=== PATIENT | female | born 1975 | race Caucasian/White ===

== ENCOUNTER → 2018-03-15 14:20 | Outpatient (CLI) | payer OTHER, SELFPAY ==
--- NOTE | 2018-03-15 | DI.US.S_ITS ---
ULTRASOUND OF RIGHT BREAST: 03/15/2018 CLINICAL: Patient returns for additional imaging over a suspected mass in the right breast. Comparison is made to exams dated: 03/15/2018 mammogram - [facility], 03/03/2018 mammogram, and 02/08/2017 mammogram - [facility]. Color flow ultrasound of the right breast was performed. Scruggs scale images of the real-time examination were reviewed. There is a 1.4 cm complicated cyst in the right breast at 9 o'clock posterior depth. This correlates with mammography findings. There also is a benign 1.3 cm simple cyst in the right breast at 9 o'clock middle depth. IMPRESSION: SUSPICIOUS OF MALIGNANCY - FOLLOW-UP RECOMMENDED The 1.4 cm complicated cyst in the right breast at 9 o'clock posterior depth is suspicious. An ultrasound guided aspiration is recommended. If finding does not aspirate to completion biopsy will be undertaken at that time. The 1.3 cm simple cyst in the right breast at 9 o'clock middle depth is benign. Findings and recommendations discussed with the patient by Dr. Gagnon of the department of radiology at the time of evaluation. This exam was interpreted at Station ID: [id number]. Electronically Signed By: Stepan Kendrick M.D. cj/:03/15/2018 22:43:54 letter sent: Biopsy Required Ultrasound BI-RADS: 4 Suspicious abnormality
--- NOTE | 2018-03-15 | DI.MG.S_ITS ---
UNILATERAL RIGHT DIGITAL DIAGNOSTIC MAMMOGRAM 3D/2D WITH ADDITIONAL VIEWS: 03/15/2018 CLINICAL: Additional evaluation requested from prior study. Comparison is made to exams dated: 03/03/2018 mammogram, 02/08/2017 mammogram, and 02/17/2016 mammogram - [facility]. The tissue of the right breast is heterogeneously dense. This may lower the sensitivity of mammography. There is a 1.8 cm oval low density mass with a circumscribed margin in the right breast at 11 o'clock posterior depth. No other significant masses or calcifications are seen in the breast. IMPRESSION: INCOMPLETE: NEEDS ADDITIONAL IMAGING EVALUATION The 1.8 cm oval low density mass in the right breast is indeterminate. An ultrasound is recommended. This exam was interpreted at Station ID: [id number]. NOTE: For mammograms, a report in lay terms will be sent to the patient. Approximately 15% of breast malignancies will not be visualized mammographically. In the management of a palpable breast mass, a negative mammogram must not discourage biopsy of a clinically suspicious lesion. Electronically Signed By: Stepan narvaez/afshin:03/15/2018 22:40:50 ACR BI-RADS Category 0: Incomplete 3340F
== END ==
PROVIDERS: PCP Physician Assistant; Visit Provider Physician Assistant
DX: R92.8 Other abnormal and inconclusive findings on diagnostic imaging of breast (principal); N60.01 Solitary cyst of right breast
CPT/HCPCS: 76642; 77065; G0279

== ENCOUNTER → 2018-04-03 08:11 | Outpatient (CLI) | payer OTHER, SELFPAY ==
--- NOTE | 2018-04-03 | PATH_ITS ---
Note [facility] Accession Number: [id number] TESTS RESULT FLAG UNITS REF RANGE LAB Clinician Provided Cytology Information No. of containers..01 ThinPrep Vial 01 RIGHT BREAST CYST DIAGNOSIS: RIGHT BREAST CYST NEGATIVE FOR MALIGNANT CELLS. Pathologist ICD10: 02 N60.11 02 Luis Sewell MD, Pathologist NPI- [id number] Monika English, Cane Loader ([facility]) 01 0.2 CC, BROWN, HAZY /LCS FLAG LEGEND: L-Low Normal,H-High Normal,LL-Alert Low,HH-Alert High <-Panic Low,>-Panic High,A-Abnormal,AA-Critical Abnormal Performed at: 01 =Z [facility] [address] [place] [address] [address], [place] [address] Anton Melo MD, 02 LWA [facility] [address] [place] [id number] Wander Aaron MD, Performed at: 01 [facility] [address], [place], [place] [id number] MD Anton Melo MD Phone: [phone]
--- NOTE | 2018-04-03 | DI.US.S_ITS ---
ULTRASOUND GUIDED ASPIRATION RIGHT BREAST WITH POST ULTRASOUND IMAGIN04/03/2018 CLINICAL: Right breast cyst aspiration. Fluid sent for cytology. Correlation is made to exams dated: 03/15/2018 ultrasound, 03/15/2018 mammogram - [facility], and 03/03/2018 mammogram - [facility]. An aspiration was performed for the 1.4 cm circumscribed oval cyst located in the right breast at 9 o'clock posterior depth. The skin was prepped in the usual manner. Local anesthetic was administered to the access site. The abnormality was approached from the caudocranial aspect. A 18 gauge needle was percutaneously placed into the abnormality under ultrasound guidance. Once the needle was documented to be in the correct location, 1 cc of opaque brown fluid was aspirated. A sterile dressing was applied to the access site. Post procedure ultrasound imaging demonstrates the abnormality to be no longer visible. The aspirated fluid was sent for cytological analysis. IMPRESSION: ASPIRATION BENIGN Aspiration of the 1.4 cm cyst in the right breast posterior depth was successful. Post ultrasound imaging revealed the abnormality to be no longer visible. Pathology demonstrates no malignant cells. Pathology results are concordant with ultrasound findings. Return to annual mammogram screening schedule is recommended. This exam was interpreted at Station ID: [id number]. Lowell simmons,ddp/:04/07/2018 14:16:55
== END ==
PROVIDERS: PCP Physician Assistant; Visit Provider Physician Assistant
DX: N60.01 Solitary cyst of right breast (principal)
CPT/HCPCS: 10022; 76942

== ENCOUNTER → 2019-03-05 12:24 | Outpatient (CLI) | payer OTHER, SELFPAY ==
--- NOTE | 2019-03-05 | DI.MG.S_ITS ---
BILATERAL DIGITAL SCREENING MAMMOGRAM 3D/2D WITH CAD: 03/05/2019 CLINICAL: Routine screening. Family history of breast cancer. Comparison is made to exams dated: 03/15/2018 mammogram - [facility], 03/03/2018 mammogram, and 02/08/2017 mammogram - [facility]. The tissue of both breasts is heterogeneously dense. This may lower the sensitivity of mammography. Current study was also evaluated with a Computer Aided Detection (CAD) system. No significant masses, calcifications, or other findings are seen in either breast. There has been no significant interval change. IMPRESSION: NEGATIVE There is no mammographic evidence of malignancy. A 1 year screening mammogram is recommended. This exam was interpreted at Station ID: [id number]. NOTE: For mammograms, a report in lay terms will be sent to the patient. Approximately 15% of breast malignancies will not be visualized mammographically. In the management of a palpable breast mass, a negative mammogram must not discourage biopsy of a clinically suspicious lesion. Electronically Signed By: Rashid saldaña/afshin:03/05/2019 19:27:22 letter sent: Normal Exam ACR BI-RADS Category 1: Negative 3341F
== END ==
PROVIDERS: PCP Physician Assistant Medical; Visit Provider Physician Assistant Medical
DX: Z12.31 Encounter for screening mammogram for malignant neoplasm of breast (principal); Z80.3 Family history of malignant neoplasm of breast
CPT/HCPCS: 77063; 77067

== ENCOUNTER → 2020-04-07 10:05 | Outpatient (CLI) | payer OTHER, SELFPAY ==
--- NOTE | 2020-04-07 10:09 | DI.MG.S_ITS ---
BILATERAL DIGITAL SCREENING MAMMOGRAM 3D/2D WITH CAD: 04/07/2020 CLINICAL: Routine screening. Family history of breast cancer. Comparison is made to exams dated: 03/05/2019 mammogram, 03/15/2018 mammogram - [facility], and 03/03/2018 mammogram - [facility]. The tissue of both breasts is heterogeneously dense. This may lower the sensitivity of mammography. Current study was also evaluated with a Computer Aided Detection (CAD) system. No significant masses, calcifications, or other findings are seen in either breast. There has been no significant interval change. IMPRESSION: NEGATIVE There is no mammographic evidence of malignancy. A 1 year screening mammogram is recommended. This exam was interpreted at Station ID: [id number]. NOTE: For mammograms, a report in lay terms will be sent to the patient. Approximately 15% of breast malignancies will not be visualized mammographically. In the management of a palpable breast mass, a negative mammogram must not discourage biopsy of a clinically suspicious lesion. Electronically Signed By: Rashid saldaña/afshin:04/07/2020 13:05:47 letter sent: Normal Exam ACR BI-RADS Category 1: Negative 3341F
== END ==
PROVIDERS: PCP Physician Assistant Medical; Referring Provider Physician Assistant Medical; Visit Provider Physician Assistant Medical
DX: Z12.31 Encounter for screening mammogram for malignant neoplasm of breast (principal); Z80.3 Family history of malignant neoplasm of breast
CPT/HCPCS: 77063; 77067

== ENCOUNTER → 2021-04-08 10:16 | Outpatient (CLI) | payer OTHER, SELFPAY ==
--- NOTE | 2021-04-08 | DI.MG.S_ITS ---
BILATERAL DIGITAL SCREENING MAMMOGRAM 3D/2D WITH CAD: 04/08/2021 CLINICAL: Routine screening. Family history of breast cancer. Comparison is made to exams dated: 04/07/2020 mammogram, 03/05/2019 mammogram, 03/15/2018 mammogram - [facility], and 03/03/2018 mammogram - [facility]. The tissue of both breasts is heterogeneously dense. This may lower the sensitivity of mammography. Current study was also evaluated with a Computer Aided Detection (CAD) system. No significant masses, calcifications, or other findings are seen in either breast. There has been no significant interval change. IMPRESSION: NEGATIVE There is no mammographic evidence of malignancy. A 1 year screening mammogram is recommended. This exam was interpreted at Station ID: [id number]. NOTE: For mammograms, a report in lay terms will be sent to the patient. Approximately 15% of breast malignancies will not be visualized mammographically. In the management of a palpable breast mass, a negative mammogram must not discourage biopsy of a clinically suspicious lesion. Electronically Signed By: Myron rojas/afshin:04/08/2021 10:59:10 letter sent: Normal Exam ACR BI-RADS Category 1: Negative 3341F
== END ==
PROVIDERS: PCP Physician Assistant Medical; Referring Provider Physician Assistant Medical; Visit Provider Physician Assistant Medical
DX: Z12.31 Encounter for screening mammogram for malignant neoplasm of breast (principal); Z80.3 Family history of malignant neoplasm of breast
CPT/HCPCS: 77063; 77067

== ENCOUNTER → 2022-04-12 14:10 | Outpatient (CLI) | payer OTHER, SELFPAY ==
--- NOTE | 2022-04-12 | DI.MG.S_ITS ---
BILATERAL DIGITAL SCREENING MAMMOGRAM 3D/2D WITH CAD: 04/12/2022 CLINICAL: Routine screening. Family history of breast cancer. Comparison is made to exams dated: 04/08/2021 mammogram, 04/07/2020 mammogram, and 03/05/2019 mammogram - [facility]. The tissue of both breasts is heterogeneously dense. This may lower the sensitivity of mammography. Current study was also evaluated with a Computer Aided Detection (CAD) system. No significant masses, calcifications, or other findings are seen in either breast. There has been no significant interval change. IMPRESSION: NEGATIVE There is no mammographic evidence of malignancy. A 1 year screening mammogram is recommended. Based on Tyrer-Cuzick model (a risk assessment model), the patient's lifetime risk is 32.0% and her 10 year risk is 6.8%. If a patient has an elevated risk, a more comprehensive evaluation should be considered and/or a referral to a genetic counselor. The [place] [employer], [place] [employer], and NCCN Guidelines advise the consideration of Breast MRI as an adjunct to screening mammography in patients whose Lifetime risk to develop breast cancer is 20% or higher. This exam was interpreted at Station ID: [id number]. NOTE: For mammograms, a report in lay terms will be sent to the patient. Approximately 15% of breast malignancies will not be visualized mammographically. In the management of a palpable breast mass, a negative mammogram must not discourage biopsy of a clinically suspicious lesion. Electronically Signed By: Myron rojas/afshin:04/12/2022 15:46:57 letter sent: Normal Exam ACR BI-RADS Category 1: Negative 3341F
--- NOTE | 2022-04-12 | DI.CT.S_ITS ---
PROCEDURE: CT ABDOMEN PELVIS WO CON INDICATIONS: FLANK PAIN TECHNIQUE: Axial sections were acquired from the lung bases to the pubic symphysis. Coronal and sagittal reformats were performed. For radiation dose reduction, the following was used: automated exposure control, adjustment of mA and/or kV according to patient size. COMPARISON: None. FINDINGS: Image quality: Excellent. Lung bases: Unremarkable. Heart: No significant findings. URINARY: Right Kidney: No stones or hydronephrosis. Right Ureter: No hydroureter. Left Kidney: No stones or hydronephrosis. Left Ureter: No hydroureter. Bladder: Normal wall thickness. No stones. ABDOMEN: Liver: Hepatic steatosis. Gallbladder: Decompressed. Biliary ducts: Unremarkable. Pancreas: Unremarkable. Spleen: Unremarkable. Adrenal Glands: Unremarkable. Stomach and Bowel: Stomach, small bowel loops, and colon are unremarkable. The appendix is not identified. Peritoneum: No abnormal intraperitoneal fluid. No free air. Ventral Wall: No hernia. Abdominal Nodes: No enlarged retroperitoneal or mesenteric lymph nodes. Vessels: Aorta and inferior vena cava are normal in size. PELVIS: Pelvic Organs: Unremarkable. Pelvic Nodes: Unremarkable. Miscellaneous: No inguinal hernias are seen. Bones: No suspicious lesion. IMPRESSION: 1. No hydronephrosis. No kidney stones. 2. No free fluid. 3. Hepatic steatosis. Dictated by: Miguel Mccallum M.D. on 04/12/2022 at 14:59 Approved by: Miguel Mccallum M.D. on 04/12/2022 at 15:03
== END ==
PROVIDERS: PCP Physician Assistant Medical; Referring Provider Physician Assistant Medical; Visit Provider Physician Assistant Medical
DX: Z12.31 Encounter for screening mammogram for malignant neoplasm of breast (principal); Z80.3 Family history of malignant neoplasm of breast; R10.9 Unspecified abdominal pain; K76.0 Fatty (change of) liver, not elsewhere classified
CPT/HCPCS: 74176; 77063; 77067

== ENCOUNTER → 2023-04-14 09:19 | Outpatient (CLI) | payer OTHER, SELFPAY ==
--- NOTE | 2023-04-14 | DI.MG.S_ITS ---
BILATERAL DIGITAL SCREENING MAMMOGRAM 3D/2D WITH CAD: 04/14/2023 CLINICAL: Routine screening. Family history of breast cancer. Comparison is made to exams dated: 04/12/2022 mammogram, 04/08/2021 mammogram, 04/07/2020 mammogram, and 03/05/2019 mammogram - [facility]. Both breasts are heterogeneously dense, which may obscure small masses (category c / 51-75% glandular tissue). Current study was also evaluated with a Computer Aided Detection (CAD) system. No significant masses, calcifications, or other findings are seen in either breast. There has been no significant interval change. IMPRESSION: NEGATIVE There is no mammographic evidence of malignancy. A 1 year screening mammogram is recommended. Based on Tyrer-Cuzick model (a risk assessment model), the patient's lifetime risk is 31.8% and her 10 year risk is 7.1%. If a patient has an elevated risk, a more comprehensive evaluation should be considered and/or a referral to a genetic counselor. The [place] [employer], [place] [employer], and NCCN Guidelines advise the consideration of Breast MRI as an adjunct to screening mammography in patients whose Lifetime risk to develop breast cancer is 20% or higher. This exam was interpreted at Station ID: [id number]. NOTE: For mammograms, a report in lay terms will be sent to the patient. Approximately 15% of breast malignancies will not be visualized mammographically. In the management of a palpable breast mass, a negative mammogram must not discourage biopsy of a clinically suspicious lesion. Electronically Signed By: Miguel boo/afshin:04/14/2023 11:31:38 letter sent: Normal Exam ACR BI-RADS Category 1: Negative 3341F
== END ==
PROVIDERS: PCP Physician Assistant Medical; Referring Provider Physician Assistant Medical; Visit Provider Physician Assistant Medical
DX: Z12.31 Encounter for screening mammogram for malignant neoplasm of breast (principal); Z80.3 Family history of malignant neoplasm of breast
CPT/HCPCS: 77063; 77067

== ENCOUNTER 2023-07-29 16:00 | Outpatient (RCR) | payer OTHER, SELFPAY ==
--- NOTE | 2023-06-17 16:53 | PT.OIE ---
Current Diagnoses Pain in right ankle and joints of right foot (06/17/23) Posterior tibial tendinitis, right leg (06/17/23) Visit Care Team Role Provider Type Rhea Starks PA-C Attending Provider Non-Staff Family Provider Primary Care Provider Referring Provider Specialty: Medical Address: [facility] [address], [place], [address] Email: Physical Therapy Initial Evaluation PT-OP-A Visit Information Start: 06/17/23 16:23 Freq: Status: Active Protocol: Document 06/17/23 15:20 DCW (Rec: 06/17/23 16:37 DCW [id number]) Out-Patient Physical Therapy Visit Information Visit Information Visit Type Initial Evaluation Visit Start Time 15:20 Visit Stop Time 16:15 Total Visit Minutes 55 Visit Number 1 Number of [employer] APPRAISER Visits 0 Evaluation Information Evaluation Date 06/17/23 PT-OP-B Current Condition Start: 06/17/23 16:23 Freq: Status: Active Protocol: Document 06/17/23 15:20 DCW (Rec: 06/17/23 16:37 DCW [id number]) Current Condition History of Current Condition Onset Date Dec, 2022 Current Complaints Right ankle pain History of Current Condition Pt is a 47 year old female presenting with a five month history of right medial ankle pain. Pt reports insidious onset, but spent a lot of time this summer hiking, which caused pain and swelling along medial malleolus. Worse with activity and at the end of the day. Is much better at this point, but still bothers her regularly with activity. Pt's PCP told her to take a 2-week course of Aleve, which seemed to help some, but pain returned after stopping. Voltarin gel helps some, and does seem to feel better after using massage gun on her calf . Treatment Goals Patient/Caregiver Goals Return to hiking pain-free PT-OP-C Subjective Start: 06/17/23 16:23 Freq: Status: Active Protocol: Document 06/17/23 15:20 DCW (Rec: 06/17/23 16:37 DCW [id number]) OP-PT Subjective Patient Comments Patient Comments When it's really bad, I do some ankle circles and ankle alphabet when I get up in the morning. I don't know hoow much it helps. Patient Reported Progress Improving Patient Questionnaires Lower Extremity Functional Scale LEFS Score 71/80 = 88.75% LEFS Impairment 1 to 19% Impaired (Score 63-79 ) PT-OP-F Manual Assessment Start: 06/17/23 16:23 Freq: Status: Active Protocol: Document 06/17/23 15:20 DCW (Rec: 06/17/23 16:37 DCW [id number]) Manual Assessments Soft Tissue Assessment Soft Tissue Mobility Assessment Very specific tenderness to palpation 3/4: Wincing and withdraw along posterior tib muscle belly and tendon down along medial malleolus and into insertion point PT-OP-K Range of Motion Start: 06/17/23 16:23 Freq: Status: Active Protocol: Document 06/17/23 15:20 DCW (Rec: 06/17/23 16:37 DCW [id number]) Ankle and Foot Goniometric Range of Motion Ankle and Foot Right Active Testing Position Sitting Dorsiflexion with Knee Flexed 10 Dorsiflexion with Knee Extended 10 Plantarflexion 55 Inversion 48 Eversion 20 Left Active Testing Position Sitting Dorsiflexion with Knee Flexed 5 Dorsiflexion with Knee Extended 5 Plantarflexion 70 Inversion 50 Eversion 20 Ankle and Foot ROM Limitations ROM Limitations Soft Tissue Tightness,Muscle Tone PT-OP-M Strength Start: 06/17/23 16:23 Freq: Status: Active Protocol: Document 06/17/23 15:20 DCW (Rec: 06/17/23 16:37 DCW [id number]) Ankle/Foot Strength Ankle and Foot Manual Muscle Testing Right Dorsiflexion (L4) 5 Normal Left Dorsiflexion (L4) 5 Normal PT-OP-Q Treatments Start: 06/17/23 16:23 Freq: Status: Active Protocol: Document 06/17/23 15:20 DCW (Rec: 06/17/23 16:40 DCW [id number]) Therapeutic Exercises Sitting Exercises Ankle flexion Sitting Exercise Name Resisted Eversion, DF Side right Resistance Green Rolling Sitting Exercise Name Self calf rolling Side right [place]dale pick-up Sitting Exercise Name [place] pick-up Side right Towel Curls Sitting Exercise Name Towel curls Side right Standing Exercises Ball STM Standing Exercise Name Plantar surface self-STM using ball Calf stretch Standing Exercise Name Runner's stretch, gastroc step , soleus step Side right PT-OP-T Assessment and Plan Start: 06/17/23 16:23 Freq: Status: Active Protocol: Document 06/17/23 15:20 DCW (Rec: 06/17/23 16:52 DCW [id number]) Physical Therapy Assessment Rehab Potential Rehabilitation Potential Excellent Evaluation Complexity Number of Personal Factors/Comorbidities 0 Number of Body Systems Impaired 1-2 Clinical Presentation at Evaluation Stable Goals Two Impairment Pt unable to fully participate in hiking activities due to right ankle pain Usp Goal (LTG) Pt to return to hiking with no increased ankle pain LTG Duration 07/23/24 One Impairment Pt does not have an appropriate home exercise program Short Term Goal (STG) Pt to be independent and compliant with an appropriate HEP STG Duration 07/06/23 Assessment Summary Assessment Pt presents with signs and symptoms consistent with likely posterior tibialis tendonitis. Location of edema and pain is along the location of the posterior tib tendon as it travels beside the medial malleolus, and pt has very point-specific tenderness along the entire length of the posterior tib musclotendonus juncture. Pt should benefit from rest and ice to decrease inflammation, as well as gentle foot and ankle strengthening, and soft- tissue mobs to decrease calf tone, particularly along posterior tib. Slight concerns regarding pt deductible, so pt would prefer a fairly comprehensive HEP, with return to follow-up in 2-3 weeks. Physical Therapy Plan Frequency and Duration Frequency of Treatment Every Other Week Plan of Care Start Date 06/17/23 Plan of Care End Date 07/23/23 Therapeutic Interventions Therapeutic Interventions Balance Training,Home Exercise Program,Joint Mobilizations, Manual Therapy,Neuromuscular Re-education,Patient/Caregiver Education,Self-Care/Home Management,Soft Tissue Mobilization,Taping, Therapeutic Activities, Therapeutic Exercises Modalities Cold Pack/Ice Massage,Electric Stimulation,Hot Packs, Ultrasound Next Visit Focus/Plan Next Note Type Treatment Note Next Visit Plan HEP review, STM, ankle mobility
--- NOTE | 2023-06-17 16:55 | PT.OPPOC ---
Physical, Occupational & Speech Therapy At [facility] Current Diagnoses Pain in right ankle and joints of right foot (06/17/23) Posterior tibial tendinitis, right leg (06/17/23) Visit Care Team Role Provider Type Rhea Starks PA-C Attending Provider Non-Staff Family Provider Primary Care Provider Referring Provider Specialty: Medical Address: [address] [place] [address] [address], [place], [address] Email: Plan Of Care PT-OP-T Assessment and Plan Start: 06/17/23 16:23 Freq: Status: Active Protocol: Document 06/17/23 15:20 DCW (Rec: 06/17/23 16:52 DCW [id number]) Physical Therapy Assessment Rehab Potential Rehabilitation Potential Excellent Evaluation Complexity Number of Personal Factors/Comorbidities 0 Number of Body Systems Impaired 1-2 Clinical Presentation at Evaluation Stable Goals Two Impairment Pt unable to fully participate in hiking activities due to right ankle pain Halfway Goal (LTG) Pt to return to hiking with no increased ankle pain LTG Duration 07/23/24 One Impairment Pt does not have an appropriate home exercise program Short Term Goal (STG) Pt to be independent and compliant with an appropriate HEP STG Duration 07/06/23 Assessment Summary Assessment Pt presents with signs and symptoms consistent with likely posterior tibialis tendonitis. Location of edema and pain is along the location of the posterior tib tendon as it travels beside the medial malleolus, and pt has very point-specific tenderness along the entire length of the posterior tib musclotendonus juncture. Pt should benefit from rest and ice to decrease inflammation, as well as gentle foot and ankle strengthening, and soft- tissue mobs to decrease calf tone, particularly along posterior tib. Slight concerns regarding pt deductable, so pt would prefer a fairly comprehensive HEP, with return to follow-up in 2-3 weeks. Physical Therapy Plan Frequency and Duration Frequency of Treatment Every Other Week Plan of Care Start Date 06/17/23 Plan of Care End Date 07/23/23 Therapeutic Interventions Therapeutic Interventions Balance Training,Home Exercise Program,Joint Mobilizations, Manual Therapy,Neuromuscular Re-education,Patient/Caregiver Education,Self-Care/Home Management,Soft Tissue Mobilization,Taping, Therapeutic Activities, Therapeutic Exercises Modalities Cold Pack/Ice Massage,Electric Stimulation,Hot Packs, Ultrasound Next Visit Focus/Plan Next Note Type Treatment Note Next Visit Plan HEP review, STM, ankle mobility Plan of Care Dates Plan of Care Start Date 06/17/23 Plan of Care End Date 07/23/23 Electronically Signed by: Yakov Beasley, PT 06/17/23 [id number] If you are in agreement with this Plan of Care, please return a signed and dated copy. I have reviewed this Plan of Care and certify that the skilled therapy services above are required to meet the patient?s needs. Physician Signature Date Printed Name and Credentials Clinical Instructor Signature Printed Name and Credentials
--- NOTE | 2023-07-29 16:39 | PT.OTN ---
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 Pt reports insidious onset, but spent a lot of time this summer hiking, which caused pain and swelling along medial malleolus. Worse with activity and at the end of the day. Is much better at this point, but still bothers her regularly with activity. Pt's PCP told her to take a 2-week course of Aleve, which seemed to help some, but pain returned after stopping. Voltarin gel helps some, and does seem to feel better after using massage gun on her calf . Treatment Goals Patient/Caregiver Goals Return to hiking pain-free PT-OP-C Subjective Start: 06/17/23 16:23 Freq: Status: Active Protocol: Document 07/29/23 16:20 DCW (Rec: 07/29/23 16:39 DCW [id number]) OP-PT Subjective Patient Comments Patient Comments I haven't really felt anything since the week of 's day. PT-OP-F Manual Assessment Start: 06/17/23 16:23 Freq: Status: Active Protocol: Document 07/29/23 16:20 DCW (Rec: 07/29/23 16:39 DCW [id number]) Manual Assessments Soft Tissue Assessment Soft Tissue Mobility Assessment General tenderness to palpation /: Complaint of pain bilaterally along posterior tib muscle belly and tendon down along medial malleolus and into insertion point PT-OP-K Range of Motion Start: 06/17/23 16:23 Freq: Status: Active Protocol: Document 07/29/23 16:20 DCW (Rec: 07/29/23 16:39 DCW [id number]) Ankle and Foot Goniometric Range of Motion Ankle and Foot Right Active Testing Position Sitting Dorsiflexion with Knee Flexed 10 Dorsiflexion with Knee Extended 10 Plantarflexion 65 Inversion 55 Eversion 25 Left Active Testing Position Sitting Dorsiflexion with Knee Flexed 5 Dorsiflexion with Knee Extended 5 Plantarflexion 70 Inversion 55 Eversion 25 PT-OP-M Strength Start: 06/17/23 16:23 Freq: Status: Active Protocol: Document 06/17/23 15:20 DCW (Rec: 06/17/23 16:37 DCW [id number]) Ankle/Foot Strength Ankle and Foot Manual Muscle Testing Right Dorsiflexion (L4) 5 Normal Left Dorsiflexion (L4) 5 Normal PT-OP-Q Treatments Start: 06/17/23 16:23 Freq: Status: Active Protocol: Document 06/17/23 15:20 DCW (Rec: 06/17/23 16:40 DCW [id number]) Therapeutic Exercises Sitting Exercises Ankle flexion Sitting Exercise Name Resisted Eversion, DF Side right Resistance Green Rolling Sitting Exercise Name Self calf rolling Side right [place] pick-up Sitting Exercise Name [place] pick-up Side right Towel Curls Sitting Exercise Name Towel curls Side right Standing Exercises Ball STM Standing Exercise Name Plantar surface self-STM using ball Calf stretch Standing Exercise Name Runner's stretch, gastroc step , soleus step Side right PT-OP-T Assessment and Plan Start: 06/17/23 16:23 Freq: Status: Active Protocol: Document 07/29/23 16:20 DCW (Rec: 07/29/23 16:39 DCW [id number]) Physical Therapy Assessment Goals Two Impairment Pt unable to fully participate in hiking activities due to right ankle pain 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 Pt appropriate for discharge from skilled therapy at this time, no longer symptomatic. Pt agreeable with this plan. Physical Therapy Plan Frequency and Duration Frequency of Treatment Every Other Week Plan of Care Start Date 07/29/23 Plan of Care End Date 07/30/23 Therapeutic Interventions Therapeutic Interventions Balance Training,Home Exercise Program,Joint Mobilizations, Manual Therapy,Neuromuscular Re-education,Patient/Caregiver Education,Self-Care/Home Management,Soft Tissue Mobilization,Taping, Therapeutic Activities, Therapeutic Exercises Modalities Cold Pack/Ice Massage,Electric Stimulation,Hot Packs, Ultrasound Next Visit Focus/Plan Next Note Type Treatment Note Next Visit Plan HEP review, STM, ankle mobility
--- NOTE | 2023-07-29 16:39 | PT.OPPOC ---
Physical, Occupational & Speech Therapy At [facility] Current Diagnoses Pain in right ankle and joints of right foot (07/29/23) Posterior tibial tendinitis, right leg (07/29/23) Visit Care Team Role Provider Type Rhea Starks PA-C Attending Provider Non-Staff Family Provider Primary Care Provider Referring Provider Specialty: Medical Address: [address] [place] [address] [address], [place], [address] Email: Plan Of Care PT-OP-T Assessment and Plan Start: 06/17/23 16:23 Freq: Status: Active Protocol: Document 07/29/23 16:20 DCW (Rec: 07/29/23 16:39 DCW [id number]) Physical Therapy Assessment Goals Two Impairment Pt unable to fully participate in hiking activities due to right ankle pain 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 Pt appropriate for discharge from skilled therapy at this time, no longer symptomatic. Pt agreeable with this plan. Physical Therapy Plan Frequency and Duration Frequency of Treatment Every Other Week Plan of Care Start Date 07/29/23 Plan of Care End Date 07/30/23 Therapeutic Interventions Therapeutic Interventions Balance Training,Home Exercise Program,Joint Mobilizations, Manual Therapy,Neuromuscular Re-education,Patient/Caregiver Education,Self-Care/Home Management,Soft Tissue Mobilization,Taping, Therapeutic Activities, Therapeutic Exercises Modalities Cold Pack/Ice Massage,Electric Stimulation,Hot Packs, Ultrasound Next Visit Focus/Plan Next Note Type Treatment Note Next Visit Plan HEP review, STM, ankle mobility Plan of Care Dates Plan of Care Start Date 07/29/23 Plan of Care End Date 07/30/23 Electronically Signed by: Yakov Beasley, PT 07/29/23 9098 If you are in agreement with this Plan of Care, please return a signed and dated copy. I have reviewed this Plan of Care and certify that the skilled therapy services above are required to meet the patient?s needs. Physician Signature Date Printed Name and Credentials Clinical Instructor Signature Printed Name and Credentials
== END 2023-08-01 13:57 | disposition home or self-care (01) ==
LOC: PHYS 16:00
PROVIDERS: Family Provider Physician Assistant Medical; PCP Physician Assistant Medical; Referring Provider Physician Assistant Medical; Visit Provider Physician Assistant Medical
DX: M25.571 Pain in right ankle and joints of right foot (principal); M76.821 Posterior tibial tendinitis, right leg
CPT/HCPCS: 97110; 97140; 97161

== ENCOUNTER 2023-12-22 08:09 | Day surgery (SDC) | payer OTHER, SELFPAY ==
--- NOTE | 2023-12-22 08:36 | PM.HP.1 ---
History of Present Illness History of Present Illness Date Patient Seen: 12/22/23 Time Patient Seen: 08:36 Chief complaint: Colonoscopy Narrative: Deyanira is a 48-year-old woman who presents for colonoscopy for colon cancer screening. She has never had a colonoscopy before. She has no known family history of colon cancer. [facility] Medical History (Updated 12/22/23 @ 08:36 by Sriram Roberson MD) History of migraine History of eczema History of psoriasis History of gastroesophageal reflux (GERD) History of depression Social History Smoking Status: Never smoker Meds Home Medications and Allergies Home Medications Medication Instructions Recorded Confirmed Type peg 3350-sod sulf,mbobs-hhk-jgo 1,000 ml PO DIRECTED #2,000 mL 11/15/23 Rx 178.7-7.3-0.5-1.12-0.9 gram oral soln (Suflave) albuterol sulfate 90 mcg/actuation 2 puff inhalation Q4H PRN sob 12/22/23 12/22/23 History aerosol inhaler bupropion HCl 150 mg 24 hr tablet, 150 mg PO QAM 12/22/23 12/22/23 History extended release sertraline 50 mg tablet 50 mg PO DAILY 12/22/23 12/22/23 History spironolactone 25 mg tablet 25 mg PO DAILY 12/22/23 12/22/23 History Allergies Allergy/AdvReac Type Severity Reaction Status Date / Time Penicillins AdvReac Fainting Verified 12/22/23 08:28 Exam Const General: No acute distress Resp Effort & Inspection: normal respiratory effort Assessment & Plan Assessment and plan (1) Colon cancer screening: Status: Acute Plan We reviewed the risks and benefits of colonoscopy for colon cancer screening and she would like to proceed.
[2023-12-22] MEDS: LACTATED RINGERS 1,000 ML 42 ML IV (08:44)
[2023-12-22 08:46] VITALS: BP 140/85; PULSE 76; RESP 16; TEMP 36.3; O2SAT 98
--- NOTE | 2023-12-22 09:23 | P.OP.COLON_ITS ---
Operative Date/Time/Diagnoses Date of procedure: 12/22/23 Time of procedure: 09:23 Pre-op diagnosis: Colon cancer screening Post-op diagnosis: same Procedure & Clinicians Study performed: Colonoscopy Same procedure as scheduled: Yes Surgeon: Sriram Roberson Procedure Notes Procedure in detail: Surgeon: Sriram Roberson MD Anesthesia: Tia Kiran CRNA Procedure: The patient was brought to the endoscopy suite, placed in left lateral decubitus position. The patient was connected to monitoring devices. A time-out was performed. Sedation was administered. Once the patient was adequately sedated, a digital rectal exam was performed and was normal. The scope was then inserted and advanced to the cecum where the appendiceal orifice was identified and photographed. The scope was then slowly withdrawn over greater than 6 minutes. The mucosa was thoroughly inspected. No polyps were f ound. The scope was retroflexed in the rectum. No abnormalities were seen. The scope was straightened and removed. The patient was awakened and brought to recovery. Scope withdrawal time: 7 minutes Sedation time: 20 minutes EBL: 0 Findings: Normal colon Post-procedure Recommendations: Colonoscopy in 10 years Disposition: PACU
[2023-12-22 09:25] VITALS: BP 107/62; PULSE 84; RESP 12; TEMP 36.1; O2SAT 98
[2023-12-22 09:30] VITALS: BP 104/61; PULSE 78; RESP 14; O2SAT 98
[2023-12-22 09:35] VITALS: BP 124/73; PULSE 83; RESP 16; TEMP 36.1; O2SAT 98
== END 2023-12-22 09:54 | disposition home or self-care (01) ==
PROVIDERS: Family Provider Physician Assistant Medical; PCP Physician Assistant Medical; Referring Provider Surgery; Visit Provider Surgery
PROC: 0DJD8ZZ Inspection of Lower Intestinal Tract, Via Natural or Artificial Opening Endoscopic (ICD-10-PCS; CPT 45378; principal; 2023-12-22 09:00)
DX: Z12.11 Encounter for screening for malignant neoplasm of colon (principal)
CPT/HCPCS: 45378; J2704

== ENCOUNTER → 2024-04-16 10:57 | Outpatient (CLI) | payer OTHER, SELFPAY ==
--- NOTE | 2024-04-16 10:58 | DI.MG.S_ITS ---
BILATERAL DIGITAL SCREENING MAMMOGRAM 3D/2D WITH CAD: 04/16/2024 CLINICAL: Routine screening. Family history of breast cancer. Comparison is made to exams dated: 04/14/2023 mammogram, 04/12/2022 mammogram, and 04/08/2021 mammogram - [facility]. Both breasts are heterogeneously dense, which may obscure small masses (category c / 51-75% glandular tissue). Current study was also evaluated with a Computer Aided Detection (CAD) system. No significant masses, calcifications, or other findings are seen in either breast. There has been no significant interval change. IMPRESSION: NEGATIVE There is no mammographic evidence of malignancy. A 1 year screening mammogram is recommended. Consider additional supplemental MRI screening. Based on Tyrer-Cuzick model (a risk assessment model), the patient's lifetime risk is 30.4% and her 10 year risk is 7.0%. If a patient has an elevated risk, a more comprehensive evaluation should be considered and/or a referral to a genetic counselor. The [place], [employer], and NCCN Guidelines advise the consideration of Breast MRI as an adjunct to screening mammography in patients whose Lifetime risk to develop breast cancer is 20% or higher. This exam was interpreted at Station ID: [id number]. NOTE: For mammograms, a report in lay terms will be sent to the patient. Approximately 15% of breast malignancies will not be visualized mammographically. In the management of a palpable breast mass, a negative mammogram must not discourage biopsy of a clinically suspicious lesion. Electronically Signed By: Anthony Frederick M.D. lc/:04/16/2024 11:39:10 letter sent: Normal Exam ACR BI-RADS Category 1: Negative [id number]
== END ==
LOC: MAMMO 10:58
PROVIDERS: Family Provider Physician Assistant Medical; PCP Physician Assistant Medical; Referring Provider Physician Assistant Medical; Visit Provider Physician Assistant Medical
DX: Z12.31 Encounter for screening mammogram for malignant neoplasm of breast (principal); Z80.3 Family history of malignant neoplasm of breast; R92.333 Mammographic heterogeneous density, bilateral breasts
CPT/HCPCS: 77063; 77067

== ENCOUNTER → 2024-10-05 13:19 | Outpatient (CLI) | payer OTHER, SELFPAY ==
--- NOTE | 2024-10-05 | DI.MRI.S_ITS ---
PROCEDURE: MR BREAST BI WO/W CON INDICATIONS: HIGH RISK TECHNIQUE: The patient was placed prone in a dedicated breast imaging coil. Precontrast axial STIR and 3D FLASH without fat saturation sequences were obtained. Both before and after bolus injection of contrast, sequential 1-minute axial 3D FLASH with fat saturation sequences for 3 time points, with subtraction images and maximum intensity projections (MIP's) generated. Delayed sagittal FLASH images with fat saturation were also obtained. Computer-aided detection, including computer algorithm analysis of MRI image data for lesion detection and characterization, pharmacokinetic analysis, with further physician review for interpretation, was performed. COMPARISON: None. FINDINGS: Image quality: Diagnostic. There is scattered amount of fibroglandular tissue. There is minimal and symmetric background parenchymal enhancement. Right breast: There is no suspicious enhancement or lymphadenopathy. Left breast: There is no suspicious enhancement or lymphadenopathy. No MRI evidence of malignancy. Recommend continued routine annual mammographic and MRI screening. Approved by: Kristina Barragan M.D.,Ph.D. on 10/06/2024 at 14:23
== END ==
LOC: MRI 13:20
PROVIDERS: Family Provider Physician Assistant Medical; PCP Physician Assistant Medical; Referring Provider Physician Assistant Medical; Visit Provider Physician Assistant Medical
DX: Z12.39 Encounter for other screening for malignant neoplasm of breast (principal)
CPT/HCPCS: 77049; A9579